=== PATIENT | female | born 1985 | race Caucasian/White ===

== ENCOUNTER 2016-04-12 04:29 | Emergency (ER) | payer OTHER ==
--- NOTE | 2016-04-12 04:35 | PDOC ---
History of Present Illness - General History Source: Patient - History of Present Illness Initial Comments: 04/12/16 06:37 The patient is a 30 year old female with a significant past medical history of asthma who presents to the emergency department with complaints of sore throat for one week. Pt also reports chills. She denies fever, abdominal pain, nausea, vomiting, diarrhea, hematuria, dysuria, chest pain, SOB, headache, dizziness. PSH: appendectomy ALL:shrimp <Ibis Potter - Last Filed: 04/12/16 06:38> <Jennifer Card - Last Filed: 04/12/16 06:57> - General Stated Complaint: EAR AND THROAT PAIN Time Seen by Provider: 04/12/16 04:35 Past History <Ibis Potter - Last Filed: 04/12/16 06:38> - Past Medical History Asthma: Yes - Surgical History Appendectomy: Yes - Reproductive History Cervical CA: No Dysfunctional Uterine Bleeding: No Ectopic : No Endometrial CA: No Polycystic Ovaries: No Tubal Ligation: No - Psycho/Social/Smoking Cessation Hx Anxiety: No Suicidal Ideation: No Smoking History: Never smoked Have you smoked in the past 12 months: No Number of Cigarettes Smoked Daily: 4 If you are a former smoker, when did you quit?: 12/03 'Breaking Loose' booklet given: 01/27/14 Hx Alcohol Use: No Drug/Substance Use Hx: No Substance Use Type: None <Jennifer Card - Last Filed: 04/12/16 06:57> - Past Medical History Allergies/Adverse Reactions: Allergies Allergy/AdvReac Type Severity Reaction Status Date / Time shellfish derived Allergy Verified 04/12/16 04:50 shrimp Allergy Hives Verified 04/12/16 04:38 Home Medications: Ambulatory Orders Fexofenadine HCl [Hannah Allergy] 0 mg PO DAILY 04/12/16 Review of Systems - Review of Systems Able to Perform ROS?: Yes Comments:: 04/12/16 06:37 GENERAL/CONSTITUTIONAL:Yes: chills No: fever, weakness, loss of appetite. HEAD, EYES, EARS, NOSE AND THROAT:Yes: sore throat No: change in vision, ear pain, discharge, throat swelling. CARDIOVASCULAR: No: chest pain, lightheadedness, palpitations, syncope RESPIRATORY: No: cough, shortness of breath, wheezing, hemoptysis, stridor. GASTROINTESTINAL: No: nausea, vomiting, abdominal cramping, diarrhea, rectal bleeding, constipation. GENITOURINARY: No: dysuria, hematuria, frequency, urgency, flank pain. MUSCULOSKELETAL: No: back pain, neck pain, joint pain, muscle swelling or pain SKIN AND BREASTS: No: lesions, pallor, rash or easy bruising. NEUROLOGIC: No: headache, vertigo, paresthesias, weakness ENDOCRINE: No: unexplained weight gain or loss HEMATOLOGIC/LYMPHATIC: No: anemia, easy bleeding, swelling nodes All Other Systems: Reviewed and Negative <Ibis Potter - Last Filed: 04/12/16 06:38> *Physical Exam - Vital Signs Last Vital Signs Temp Pulse Resp BP Pulse Ox 98.8 F 83 18 146/100 99 04/12/16 04:50 04/12/16 04:50 04/12/16 04:50 04/12/16 04:50 04/12/16 04:50 - Physical Exam Comments: 04/12/16 06:38 GENERAL: The patient is in no acute distress. HEAD: Normal with no signs of trauma. EYES: PERRLA, EOMI, sclera anicteric, conjunctiva clear. ENT: Ears normal, nares patent, oropharynx clear without exudates. Moist mucous membranes. NECK: Normal range of motion, supple without lymphadenopathy, JVD, or masses. LUNGS: Breath sounds equal, clear to auscultation bilaterally. No wheezes, and no crackles. HEART:Regular rate and rhythm, normal S1 and S2 without murmur, rub or gallop. ABDOMEN: Soft, nontender, normoactive bowel sounds. No guarding, no rebound. EXTREMITIES: Normal range of motion, no edema. No clubbing or cyanosis. No erythema, or tenderness. NEUROLOGICAL: Cranial nerves II through XII grossly intact. Normal speech. No focal neurological deficits. MUSCULOSKELETAL: Back non-tender to palpation, no CVA tenderness SKIN: Warm, Dry, normal turgor, no rashes or lesions noted. <Ibis Potter - Last Filed: 04/12/16 06:38> ED Treatment Course - ADDITIONAL ORDERS Additional order review: Laboratory Results 04/12/16 06:10 Urine HCG, Qual Negative 04/12/16 06:12 Group A Strep Rapid Antigen - Final Throat <Ibis Potter - Last Filed: 04/12/16 06:38> *DC/Admit/Observation/Transfer - Attestations Scribe Attestion: 04/12/16 06:38 Documentation prepared by Ibis Potter, acting as medical staff specialist for Jennifer Card MD. <Ibis Potter - Last Filed: 04/12/16 06:38> - Discharge Dispostion Admit: No <Jennifer Card - Last Filed: 04/12/16 06:57> Diagnosis at time of Disposition: Viral pharyngitis - Discharge Dispostion Condition at time of disposition: Stable - Patient Instructions Printed Discharge Instructions: DI for Viral Pharyngitis - Post Discharge Activity Work/School Note: Back to Work
[2016-04-12 04:58] VITALS: BP 146/100; PULSE 83; TEMP 98.8; BMI 43.8
== END 2016-04-12 06:59 | disposition home or self-care (01) ==
LOC: JER 04:29
DX: J02.8 Acute pharyngitis due to other specified organisms (principal); B97.89 Other viral agents as the cause of diseases classified elsewhere
CPT/HCPCS: 70360-TC; 84703; 87070; 87430; 99282-25

== ENCOUNTER 2016-10-06 04:12 | Emergency (ER) | payer OTHER ==
--- NOTE | 2016-10-06 05:03 | PDOC ---
History of Present Illness - General Chief Complaint: Sore Throat Stated Complaint: THROAT/EAR PAIN,FEVER Time Seen by Provider: 10/06/16 04:25 - History of Present Illness Initial Comments: 10/06/16 05:03 CHIEF COMPLAINT: fever, ear pain HISTORY OF PRESENT ILLNESS: 31 yo F with no significant PMH presents to ED with fever and No recent travel or sick contacts. PAST MEDICAL HISTORY: Denies past medical history FAMILY HISTORY: Denies SOCIAL HISTORY: Lives at home with ____. Occupation: . Denies tobacco, alcohol, illicit drug use. SURGICAL HISTORY: Denies ALLERGIES: No known drug allergies REVIEW OF SYSTEMS General/Constitutional: Denies fever or chills. Denies weakness, weight change. HEENT: Denies change in vision. Denies ear pain or discharge. Denies sore throat. Cardiovascular: Denies chest pain or shortness of breath. Respiratory: Denies cough, wheezing, or hemoptysis. Gastrointestinal: Denies nausea, vomiting, diarrhea or constipation. Denies rectal bleeding. Genitourinary: Denies dysuria, frequency, or change in urination. Musculoskeletal: Denies joint or muscle swelling or pain. Denies neck or back pain. Skin and breasts: Denies rash or easy bruising. Neurologic: Denies headache, vertigo, loss of consciousness, or loss of sensation. Psychiatric: Denies depression or anxiety. Endocrine: Denies increased thirst. Denies abnormal weight change. Hematologic/Lymphatic: Denies anemia, easy bleeding, or history of blood clots. Allergic/Immunologic: Denies hives or skin allergy. Denies latex allergy. PHYSICAL EXAM General Appearance: Well-appearing, appropriately dressed. No apparent distress , no intoxication. HEENT: EOMI, PERRLA, normal ENT inspection, normal voice, TMs normal, pharynx normal. No conjunctival pallor. No photophobia, scleral icterus. Neck: Supple. Trachea midline. No tenderness, rigidity, carotid bruit, stridor , lymphadenopathy, or thyromegaly. Respiratory/Chest: Lungs CTAB. No shortness of breath, chest tenderness, respiratory distress, accessory muscle use. No crackles, rales, rhonchi, stridor , wheezing, dullness Cardiovascular: RRR. S1, S2. No JVD, murmur, bradycardia, tachycardia. Vascular Pulses: Dorsalis-Pedis (R): 2+, Dorsalis-Pedis (L): 2+ Gastrointestinal/Abdominal: Normal bowel sounds. Abdomen soft, non-distended. No tenderness or rebound tenderness. No organomegaly, pulsatile mass, guarding , hernia, hepatomegaly, splenomegaly. Lymphatic: No adenopathy, tenderness. Musculoskeletal/Extremities: Normal inspection. FROM of all extremities, normal capillary refill. Pelvis Stable. No CVA tenderness. No tenderness to extremities, pedal edema, swelling, erythema or deformity. Integumentary: Appropriate color, dry, warm. No cyanosis, erythema, jaundice or rash Neurologic: tracer lathe set up operator II-XII intact. Fully oriented, alert. Appropriate mood/affect. Motor strength 5/5. No appreciable EOM palsy, facial droop or sensory deficit. 10/08/16 05:20 Past History - Past Medical History Allergies/Adverse Reactions: Allergies Allergy/AdvReac Type Severity Reaction Status Date / Time shellfish derived Allergy Verified 10/06/16 05:04 shrimp Allergy Hives Verified 10/06/16 05:04 Home Medications: Ambulatory Orders Ciprofloxacin HCl/Dexameth [Ciprodex Otic Suspension] 4 drop AD BID #1 bottle Hydrochlorothiazide [Hctz -] 12.5 mg PO DAILY 10/06/16 Loratadine [Claritin] 10 mg PO DAILY #14 tablet 10/06/16 Pseudoephedrine HCl [Sudafed 12-Hour] 120 mg PO BID PRN #14 tablet.er 10/06/16 Asthma: Yes - Surgical History Appendectomy: Yes - Reproductive History Cervical CA: No Dysfunctional Uterine Bleeding: No Ectopic : No Endometrial CA: No Polycystic Ovaries: No Tubal Ligation: No - Immunization History Immunization Up to Date: Yes - Psycho/Social/Smoking Cessation Hx Anxiety: No Suicidal Ideation: No Smoking History: Never smoked Have you smoked in the past 12 months: No Number of Cigarettes Smoked Daily: 4 If you are a former smoker, when did you quit?: 12/03 'Breaking Loose' booklet given: 01/27/14 Hx Alcohol Use: No Drug/Substance Use Hx: No Substance Use Type: None *DC/Admit/Observation/Transfer Diagnosis at time of Disposition: Otitis externa Qualifiers: Otitis externa type: swimmer's ear Chronicity: acute Laterality: right Qualified Code(s): H60.331 - Swimmer's ear, right ear - Discharge Dispostion Disposition: HOME Admit: No - Prescriptions Prescriptions: Ciprofloxacin HCl/Dexameth [Ciprodex Otic Suspension] 4 drop AD BID #1 bottle Loratadine [Claritin] 10 mg PO DAILY #14 tablet Pseudoephedrine HCl [Sudafed 12-Hour] 120 mg PO BID PRN #14 tablet.er PRN Reason: congestion - Referrals Referrals: Thi Menchaca MD [Primary Care Provider] - Steve Paulino MD [Staff Physician] - - Patient Instructions Printed Discharge Instructions: DI for Viral Syndrome, DI for Otitis Externa Additional Instructions: Please take medications as prescribed. Follow up with ENT if symptoms persist for more than 4-5 days (referral provided). If you experience any persistent fever unrelieved by Motrin or Tylenol, persistent vomiting, diarrhea, neck pain , or any new or worsening symptoms, please return to the ER.
== END 2016-10-06 05:41 | disposition home or self-care (01) ==
LOC: JER 04:12
DX: H60.331 Swimmer's ear, right ear (principal)
CPT/HCPCS: 87070; 87430; 99281-25

== ENCOUNTER 2017-05-26 16:24 | Emergency (ER) | payer OTHER ==
--- NOTE | 2017-05-26 16:47 | PDOC ---
Rapid Medical Evaluation Time Seen by Provider: 05/26/17 16:41 Medical Evaluation: Allergies Allergy/AdvReac Type Severity Reaction Status Date / Time shellfish derived Allergy Verified 10/06/16 05:04 shrimp Allergy Hives Verified 10/06/16 05:04 05/26/17 16:42 The patient presents with a chief complaint of: ITP, Lupus, Sjogrens, HTN, and her PCP called stating her plts were low (30's) found a month ago and wants her in the hospital to eval. I have performed a brief in-person evaluation of this patient; Pertinent physical exam findings: ambulatory, in no respiratory distress I have ordered the following: labs The patient will proceed to the ED for further evaluation. 05/26/17 16:42
[2017-05-26 16:48] VITALS: BMI 49.3
[2017-05-26] MEDS ORDERED: SODIUM CHLORIDE 0.9% 1000 ML INFUS.BAG IV ONE (18:05)
[2017-05-26] MEDS ORDERED: ONDANSETRON 4 MG/2 ML VIAL IVPUSH ONE (18:05)
[2017-05-26 18:06] LABS: BASO % 1.1 % (0-2.0); EOS % 0.1 % (0-4.5); HEMATOCRIT 46.8 % (32.4-45.2); HEMOGLOBIN 15.7 GM/dL (10.7-15.3); LYMPH % 26.4 % (8-40); MCH 32.1 pg (25.7-33.7); MCHC 33.6 g/dl (32.0-36.0); MEAN CELL VOLUME 95.7 fl (80-96); MONO % 12.4 % (3.8-10.2); RDW 14.3 % (11.6-15.6); WHITE BLOOD COUNT 6.7 K/mm3 (4.0-10.0)
--- NOTE | 2017-05-26 18:07 | PDOC ---
History of Present Illness - General History Source: Patient Exam Limitations: No Limitations - History of Present Illness Initial Comments: 05/27/17 00:08 Patient is a 31 year old female with a significant past medical history of ITP, Lupus, Sjogrens, HTN, GERD, PCOS Lupus (diagnosed december 2016)who was sent by her PCP the ED for low platelet count. Patient reports calling her cook frozen dessert due to finishing her medication when she was told to come into the ED for further evaluation for low platelet levels. She reports experiencing intermittent stomach pain, nausea, and 1 episode of vomiting that occurred yesterday afternoon. Patient reports experiencing associate episodes of diarrhea and intermittent dizziness, fatigue and dehydration She reports not experiencing her menstrual cycle for 2 years. Discussed with rheumatology who agrees to follow up in office Denies chest pain, Sob. Denies fevers,chills. Denies contact with sick individuals, out of state traveling. Denies dysuria, hematuria. Denies any other symptoms. Allergies: Shrimp, Shellfish, IV contrast Social history: No smoking. No alcohol. No illicit drugs. Surgical history: Appendectomy PMD: Not on staff Timing/Duration: resolved prior to arrival <Deonte Porter - Last Filed: 05/27/17 00:08> <Morena Yang - Last Filed: 05/27/17 00:16> - General Chief Complaint: Revisit, Lab Variance Stated Complaint: PCP SENT/NAUSEA Time Seen by Provider: 05/26/17 16:41 Past History <Deonte Porter - Last Filed: 05/27/17 00:08> - Past Medical History Asthma: Yes COPD: No HTN: Yes Other medical history: ITP, LUPUS, Sjogrens - Surgical History Appendectomy: Yes - Reproductive History Cervical CA: No Dysfunctional Uterine Bleeding: No Ectopic : No Endometrial CA: No Polycystic Ovaries: No Tubal Ligation: No - Immunization History Immunization Up to Date: Yes - Suicide/Smoking/Psychosocial Hx Smoking History: Never smoked Have you smoked in the past 12 months: No Number of Cigarettes Smoked Daily: 4 If you are a former smoker, when did you quit?: 12/03 'Breaking Loose' booklet given: 01/27/14 Hx Alcohol Use: No Drug/Substance Use Hx: No Substance Use Type: None <Morena Yang - Last Filed: 05/27/17 00:16> - Past Medical History Allergies/Adverse Reactions: Allergies Allergy/AdvReac Type Severity Reaction Status Date / Time shellfish derived Allergy Verified 05/26/17 16:43 shrimp Allergy Hives Verified 05/26/17 16:43 iv contrast Allergy Uncoded 05/26/17 16:43 Home Medications: Ambulatory Orders Ciprofloxacin HCl/Dexameth [Ciprodex Otic Suspension] 4 drop AD BID #1 bottle Hydrochlorothiazide [Hctz -] 12.5 mg PO DAILY 10/06/16 Loratadine [Claritin] 10 mg PO DAILY #14 tablet 10/06/16 Pseudoephedrine HCl [Sudafed 12-Hour] 120 mg PO BID PRN #14 tablet.er 10/06/16 Review of Systems - Review of Systems Able to Perform ROS?: Yes Comments:: 05/27/17 00:08 GENERAL/CONSTITUTIONAL: +Fatigue. +Dehydration. No fever or chills. HEAD, EYES, EARS, NOSE AND THROAT: No change in vision. No ear pain or discharge. No sore throat. GASTROINTESTINAL: +stomach pain. +Nausea, +Vomiting. +Constipation. No diarrhea or constipation. GENITOURINARY: No dysuria, frequency, or change in urination. CARDIOVASCULAR: No chest pain or shortness of breath. RESPIRATORY: No cough, wheezing, or hemoptysis. MUSCULOSKELETAL: No joint or muscle swelling or pain. No neck or back pain. SKIN: No rash NEUROLOGIC: No headache, vertigo, loss of consciousness, or change in strength/ sensation. ENDOCRINE: No increased thirst. No abnormal weight change. HEMATOLOGIC/LYMPHATIC: No anemia, easy bleeding, or history of blood clots. ALLERGIC/IMMUNOLOGIC: No hives or skin allergy. <Deonte Porter - Last Filed: 05/27/17 00:08> *Physical Exam - Vital Signs Last Vital Signs Temp Pulse Resp BP Pulse Ox 98.2 F 94 H 18 144/96 99 05/26/17 16:44 05/26/17 16:44 05/26/17 16:44 05/26/17 16:44 05/26/17 16:44 - Physical Exam Comments: 05/27/17 00:09 GENERAL: +Slightly obese. Awake, alert, and fully oriented, in no acute distress HEAD: No signs of trauma EYES: PERRLA, EOMI, sclera anicteric, conjunctiva clear ENT: Auricles normal inspection, hearing grossly normal, nares patent, oropharynx clear without exudates. Moist mucosa NECK: Normal ROM, supple, no lymphadenopathy, JVD, or masses LUNGS: Breath sounds equal, clear to auscultation bilaterally. No wheezes, and no crackles HEART: Regular rate and rhythm, normal S1 and S2, no murmurs, rubs or gallops ABDOMEN: +Mild epigastric tenderness. Soft, normoactive bowel sounds. No guarding, no rebound. No masses EXTREMITIES: Normal range of motion, no edema. No clubbing or cyanosis. No cords, erythema, or tenderness NEUROLOGICAL: Cranial nerves II through XII grossly intact. Normal speech, normal gait SKIN: Warm, Dry, normal turgor, no rashes or lesions noted. <Deonte Porter - Last Filed: 05/27/17 00:08> - Vital Signs Last Vital Signs Temp Pulse Resp BP Pulse Ox 98.2 F 94 H 18 144/96 99 05/26/17 16:44 05/26/17 16:44 05/26/17 16:44 05/26/17 16:44 05/26/17 16:44 <Morena Yang - Last Filed: 05/27/17 00:16> ED Treatment Course - LABORATORY CBC & Chemistry Diagram: 05/26/17 16:30 05/26/17 16:30 - ADDITIONAL ORDERS Additional order review: Laboratory Results 05/26/17 05/26/17 16:30 16:30 PT with INR 13.90 H INR 1.23 H PTT (Actin FS) 33.6 Sodium 140 Potassium 4.3 Chloride 107 Carbon Dioxide 20 L Anion Gap 13 BUN 17 Creatinine 0.8 Creat Clearance w eGFR > 60 Random Glucose 80 Calcium 8.8 Total Bilirubin 1.6 H D AST 25 ALT 40 Alkaline Phosphatase 71 Total Protein 7.1 Albumin 3.1 L 05/26/17 16:30 RBC 4.90 MCV 95.7 MCHC 33.6 RDW 14.3 MPV 15.9 H Neutrophils % 60.0 D Lymphocytes % 26.4 D Monocytes % 12.4 H Eosinophils % 0.1 Basophils % 1.1 - Medications Given in the ED: ED Medications Discontinued Medications Generic Name Dose Route Start Last Admin Trade Name Freq PRN Reason Stop Dose Admin Famotidine/Sodium Chloride 20 mg in 50 mls @ 100 mls/hr 05/26/17 18:15 18:36 Pepcid 20 Mg Premixed Ivpb - IVPB 05/26/17 18:44 100 mls/hr ONCE ONE Administration Ondansetron HCl 4 mg 05/26/17 18:05 05/26/17 18:36 Zofran Injection IVPUSH 05/26/17 18:06 4 mg ONCE ONE Administration Sodium Chloride 1,000 ml 05/26/17 18:05 05/26/17 18:36 Normal Saline - IV 05/26/17 18:06 1,000 ml ONCE ONE Administration <Deonte Porter - Last Filed: 05/27/17 00:08> - LABORATORY CBC & Chemistry Diagram: 05/26/17 16:30 05/26/17 16:30 <Morena Yang - Last Filed: 05/27/17 00:16> Medical Decision Making - Medical Decision Making 05/26/17 20:10 Dr. Gloria rheumatology - [phone] <Deonte Porter - Last Filed: 05/27/17 00:08> - Medical Decision Making 05/26/17 18:05 a/p: 31yo female sent by [facility] for eval of thrombocytopenia -apparently labs sent 05/03 showed plts of 32k -states mild epistaxis when she blows her nose -always has gum bleeding -no blood in stool or in urine -no petechial rash -will check labs -ivf hydration, pepcid, zofran for epigastric pain - most likely secondary to metformin - on 2000mg a day -will monitor and reassess -has never required admission for ITP 05/26/17 19:39 plts 60 labs reviewed nausea resolved calling her cook frozen dessert to update with lab results po challenge given to the patient 05/26/17 20:12 pt feeling better tolerated po no call back from Rheum - labs stable answered all questions discussed all reasons to return to the ED stable for d/c to home. 05/27/17 00:[address] Gloria who agrees with the plan to d/c to home and follow up in the office. <Morena Yang - Last Filed: 05/27/17 00:16> *DC/Admit/Observation/Transfer - Attestations Scribe Attestion: 05/26/17 20:11 Documentation prepared by Deonte Porter, acting as medical detailist for Morena Yang DO, MD/. <Deonte Porter - Last Filed: 05/27/17 00:08> - Discharge Dispostion Admit: No - Attestations Physician Attestion: 05/26/17 20:17 I, Dr. Morena Yang DO, attest that this document has been prepared under my direction and personally reviewed by me in its entirety. I further attest, that it accurately reflects all work, treatment, procedures and medical decision -making performed by me. <Morena Yang - Last Filed: 05/27/17 00:16> Diagnosis at time of Disposition: Thrombocytopenia, Nausea - Discharge Dispostion Disposition: HOME Condition at time of disposition: Stable - Referrals Referrals: Ela Santiago [Non Staff, Medical] - Lexis Gloria MD [Staff Physician] - - Patient Instructions Printed Discharge Instructions: Immune Thrombocytopenia Purpura, DI for Nausea -- Adult Additional Instructions: Please drink plenty of fluids. Please take all medications as prescribed. Please return to the ED with any further complaints. Please make an appointment to see your cook frozen dessert and your PMD in 1-2 days.
[2017-05-26] MEDS ORDERED: FAMOTIDINE 20 MG/50 ML IVPB 20 MG/50 ML MG IVPB ONE ×2 (18:15→18:27)
[2017-05-26 18:25] LABS: INR 1.23 (0.82-1.09); PROTHROMBIN TIME (PATIENT) 13.9 SEC (9.98-11.88)
[2017-05-26] MEDS ORDERED: ONDANSETRON 4 MG/2 ML VIAL ONE (18:27)
[2017-05-26 18:28] LABS: ACTIVATED PTT 33.6 SECONDS (26.9-34.4); ALBUMIN 3.1 g/dl (3.4-5.0); ANION GAP 13 (8-16); BILIRUBIN,TOTAL 1.6 mg/dL (0.2-1.0); BLOOD UREA NITROGEN 17 mg/dL (7-18); CALCIUM 8.8 mg/dL (8.5-10.1); CHLORIDE 107 mmol/L (98-107); CO2 20 mmol/L (21-32); CREATININE 0.8 mg/dL (0.55-1.02); GLUCOSE,RANDOM 80 mg/dL (74-106); POTASSIUM 4.3 mmol/L (3.5-5.1); SGOT/AST 25 U/L (15-37); SODIUM 140 mmol/L (136-145); TOT PROT 7.1 g/dl (6.4-8.2)
[2017-05-26 18:29] LABS: ALK PHOS 71 U/L (45-117)
[2017-05-26 18:30] LABS: SGPT/ALT 40 U/L (12-78)
[2017-05-26 18:35] LABS: MEAN PLT VOLUME 15.9 fl (7.5-11.1); PLATELET COUNT 60 K/MM3 (134-434); PLATELET ESTIMATE MOD DECREASED
[2017-05-26] MEDS ORDERED: ACETAMINOPHEN 325 MG TABLET (FP) PO ONE (20:12)
[2017-05-26] MEDS ORDERED: ACETAMINOPHEN 325 MG TABLET (FP) ONE (20:21)
[2017-05-26 20:31] VITALS: BP 136/78; PULSE 89; TEMP 98
== END 2017-05-26 20:31 | disposition home or self-care (01) ==
LOC: JER 16:24
PROC: 3E033GC Introduction of Other Therapeutic Substance into Peripheral Vein, Percutaneous Approach (ICD-10-PCS; principal; 2017-05-26)
PROC: 3E0337Z Introduction of Electrolytic and Water Balance Substance into Peripheral Vein, Percutaneous Approach (ICD-10-PCS; 2017-05-26)
DX: D69.6 Thrombocytopenia, unspecified (principal); R11.0 Nausea
CPT/HCPCS: 36415; 80053; 85025; 85610; 85730; 99281-25

== ENCOUNTER 2018-06-01 08:00 | Emergency (ER) | payer OTHER ==
[2018-06-01 08:18] VITALS: BP 138/89; PULSE 79; TEMP 98.3; BMI 48.4
--- NOTE | 2018-06-01 08:40 | PDOC ---
History of Present Illness - General Chief Complaint: Back Pain Stated Complaint: BACK PAIN,LEFT SIDE PAIN Time Seen by Provider: 06/01/18 08:35 History Source: Patient Exam Limitations: Clinical Condition - History of Present Illness Initial Comments: 06/01/18 08:53 Patient with history of ITP, hypertension and lupus present with complaint of worsening left lower back pain for the past 3 days which is worse with movement and getting up from a sitting or laying position. Patient denies any trauma or injury to the back. Denies history of back pains. Patient denies dysuria, no with urination urgency or burning with urination. Denies nausea, vomiting, fever or chills. Denies any other symptoms Past History - Past Medical History Allergies/Adverse Reactions: Allergies Allergy/AdvReac Type Severity Reaction Status Date / Time shellfish derived Allergy Verified 05/26/17 16:43 shrimp Allergy Hives Verified 05/26/17 16:43 ibuprofen AdvReac Verified 06/01/18 08:19 iv contrast Allergy Uncoded 05/26/17 16:43 Home Medications: Ambulatory Orders Acetaminophen W/ Codeine #3 [Tylenol # 3 -] 1 tab PO Q6H PRN #12 tablet MDD 3 Lidocaine 5% Patch [Lidoderm -] 1 patch TP DAILY #7 patch 06/01/18 Methocarbamol [Robaxin -] 500 mg PO BID PRN #14 tablet 06/01/18 Asthma: Yes COPD: No HTN: Yes Other medical history: LUPUS, PCOS - Surgical History Appendectomy: Yes - Reproductive History Cervical CA: No Dysfunctional Uterine Bleeding: No Ectopic : No Endometrial CA: No Polycystic Ovaries: No Tubal Ligation: No - Immunization History Immunization Up to Date: Yes - Suicide/Smoking/Psychosocial Hx Smoking History: Never smoked Have you smoked in the past 12 months: No Number of Cigarettes Smoked Daily: 4 If you are a former smoker, when did you quit?: 12/03 Information on smoking cessation initiated: No 'Breaking Loose' booklet given: 01/27/14 Hx Alcohol Use: No Drug/Substance Use Hx: No Substance Use Type: None Review of Systems - Review of Systems Able to Perform ROS?: Yes Is the patient limited [place] proficient: No Constitutional: No: Chills, Fever, Malaise HEENTM: No: Symptoms Reported Respiratory: No: Symptoms reported, See HPI, Cough, Orthopnea, Shortness of Breath, SOB with Exertion, SOB at Rest, Stridor, Wheezing, Productive cough, Hemoptysis, Other Cardiac (ROS): No: Symptoms Reported, See HPI, Chest Pain, Edema, Irregular Heart Rate, Lightheadedness, Palpitations, Syncope, Chest Tightness, Other ABD/GI: No: Symptoms Reported, See HPI, Abdominal Distended, Abd. Pain w/ defecation, Blood Streaked Bowels, Constipated, Diarrhea, Difficulty Swallowing , Nausea, Poor Appetite, Poor Fluid Intake, Rectal Bleeding, Vomiting, Indigestion, Abdominal cramping, Tarry Stools, Other : No: Dysuria, Discharge, Frequency, Hematuria, Urgency Musculoskeletal: Yes: See HPI, Back Pain (left lower back pain), Muscle Pain ( left lower back pain ). No: Muscle Weakness Neurological: No: Numbness, Paresthesia Hematologic/Lymphatic: Yes: See HPI All Other Systems: Reviewed and Negative *Physical Exam - Vital Signs Last Vital Signs Temp Pulse Resp BP Pulse Ox 98.3 F 79 18 138/89 100 06/01/18 08:14 06/01/18 08:14 06/01/18 08:14 06/01/18 08:14 06/01/18 08:14 - Physical Exam Comments: 06/01/18 08:56 GENERAL: Well developed, well nourished. Awake and alert. No acute distress. HEENT: Normocephalic, atraumatic. PERRLA, EOMI. No conjunctival pallor. Sclera are non-icteric. Moist mucous membranes. Oropharynx is clear. NECK: Supple. Full ROM. CARDIOVASCULAR: Regular rate and rhythm. No murmurs, rubs, or gallops. Distal pulses are 2+ and symmetric. PULMONARY: No evidence of respiratory distress. Lungs clear to auscultation bilaterally. No wheezing, rales or rhonchi. ABDOMINAL: Soft. Non-tender. Non-distended. No rebound or guarding. No organomegaly. Normoactive bowel sounds. MUSCULOSKELETAL : moderate tenderness to left paravertebral muscle of the lower lumbosacral spine of L4-S2 which is worse with external rotation of the hip to the right. Negative straight leg test.Normal range of motion at all joints. EXTREMITIES: No cyanosis. No clubbing. No edema. No calf tenderness. SKIN: Warm and dry. Normal capillary refill. No rashes. NEUROLOGICAL: Alert, awake, appropriate. Gait is normal without ataxia. PSYCHIATRIC: Cooperative. Good eye contact. Appropriate mood General Appearance: Yes: Nourished. No: Appropriately Dressed, Apparent Distress Moderate Sedation - Procedure Monitoring Vital Signs: Procedure Monitoring Vital Signs Temperature 98.3 F 06/01/18 08:14 Pulse Rate 79 06/01/18 08:14 Respiratory Rate 18 06/01/18 08:14 Blood Pressure 138/89 06/01/18 08:14 O2 Sat by Pulse Oximetry (%) 100 06/01/18 08:14 Medical Decision Making - Medical Decision Making 06/01/18 08:57 Patient with history of ITP, hypertension and lupus present with complaint of worsening left lower back pain without trauma or injury. Exam significant for moderate tenderness to left lower lumbosacral region. No CVA tenderness on exam. Symptoms likely lumbago with back spasm versus less likely kidney stone versus less likely pyelonephritis. UA, urine culture and urine test ordered. Tramadol 50 mg by mouth and Robaxin 500 mg by mouth given for pain. Will consider imaging after lab results. 06/01/18 09:43 x-rays of lumbosacral shows no acute pathology. urine hcg negative. Patient report feeling better with Tramadol and robaxin. Patient stable for discharge on Tylenol and robaxin with advise to do heat therapy to the back and ortho follow-up *DC/Admit/Observation/Transfer Diagnosis at time of Disposition: Lumbago without sciatica Qualifiers: Chronicity: acute Back pain laterality: left Qualified Code(s): M54.5 - Low back pain - Discharge Dispostion Disposition: HOME Condition at time of disposition: Stable Decision to Admit order: No - Prescriptions Prescriptions: Acetaminophen W/ Codeine #3 [Tylenol # 3 -] 1 tab PO Q6H PRN #12 tablet MDD 3 PRN Reason: Back Pain Lidocaine 5% Patch [Lidoderm -] 1 patch TP DAILY #7 patch Methocarbamol [Robaxin -] 500 mg PO BID PRN #14 tablet PRN Reason: Back Pain - Referrals Referrals: Ela Santiago [Primary Care Provider] - Yunior Gaytan DO [Staff Physician] - - Patient Instructions Printed Discharge Instructions: Exercise May Reduce Risk of Low Back Pain, DI for Low Back Pain Additional Instructions: Take prescribed medication as needed for lower back pain. Apply heat to lower back pain 2-3 times a day for 5-10 minutes as needed for back pain. Follow-up referred to orthopedics if no improvement in 4 days. - Post Discharge Activity
[2018-06-01] MEDS ORDERED: traMADol HCL 50 MG TABLET PO ONE (08:49)
[2018-06-01] MEDS ORDERED: METHOCARBAMOL 500 MG TABLET PO ONE (08:49)
[2018-06-01 09:00] LABS: HCG,QUALITATIVE URINE Negative
[2018-06-01 09:44] LABS: URINE APPEARANCE CLEAR; URINE BILIRUBIN NEGATIVE (<2.0 mg/dL); URINE COLOR YELLOW; URINE GLUCOSE (UA) NEGATIVE (NEGATIVE); URINE KETONE NEGATIVE (NEGATIVE); URINE LEUK ESTERASE NEGATIVE (NEGATIVE); URINE NITRITE NEGATIVE (NEGATIVE); URINE PROTEIN NEGATIVE (NEGATIVE); URINE UROBILINOGEN 4.0 E.U/dl mg/dL (0.2-1.0)
== END 2018-06-01 09:52 | disposition home or self-care (01) ==
LOC: JER 08:00 → JERFT 08:00
DX: M54.5 Low back pain (principal); I10 Essential (primary) hypertension; J45.909 Unspecified asthma, uncomplicated; D69.3 Immune thrombocytopenic purpura; M32.9 Systemic lupus erythematosus, unspecified; E28.2 Polycystic ovarian syndrome; Z91.013 Allergy to seafood
CPT/HCPCS: 72100-TC-FY; 81003; 84703; 87086; 99281-25